=== PATIENT | male | born 1995 | race Two or more races ===

== ENCOUNTER 2022-08-11 10:34 | Emergency (ER) | payer OTHER ==
[~2022-08-11] VITALS: Ht 172.7 cm; Wt 99.8 kg
== END 2022-08-11 11:55 | disposition home or self-care (01) ==
LOC: ER 10:34
DX: S73.191A Other sprain of right hip, initial encounter (principal); S76.011A Strain of muscle, fascia and tendon of right hip, initial encounter; S76.311A Strain of muscle, fascia and tendon of the posterior muscle group at thigh level, right thigh, initial encounter; X58.XXXA Exposure to other specified factors, initial encounter; Y93.66 Activity, soccer; Y92.89 Other specified places as the place of occurrence of the external cause; Y99.8 Other external cause status; M79.651 Pain in right thigh; Z91.030 Bee allergy status

== ENCOUNTER → 2024-08-27 | Emergency (ER) | payer OTHER ==
[~2024-08-27] VITALS: Ht 172.7 cm; Wt 99.8 kg
[~2024-08-27] MED LIST: CLONIDINE HCL 0.1 MG TABLET PO ONE; cloNIDine HCL 0.2 MG TABLET PO STA
[2024-08-27 09:24] LABS: MEAN CORPUSCULAR HEMOGLOBIN 30.2 pg (27.00-32.0); MEAN CORPUSCULAR HGB CONC 34.7 g/dl (32.0-36.0); PLATELET COUNT 150 K/uL (150-450); RED BLOOD COUNT 5.29 M/uL (4.00-6.00); RED CELL DISTRIBUTION WIDTH 13.8 % (11.5-14.5)
[2024-08-27 09:37] LABS: PH,URINE 5.5 (5.0-8.0); URINE APPEARANCE Clear; URINE BILIRRUBIN Negative (NEGATIVE); URINE BLOOD Trace; URINE COLOR Yellow; URINE GLUCOSE Negative (NEGATIVE); URINE KETONE Negative (NEGATIVE); URINE LEUKOCYTE Negative; URINE NITRATE Negative; URINE PROTEIN Negative (NEGATIVE); URINE UROBILINOGEN 0.2 E.U./dl
[2024-08-27 09:41] LABS: URINE WBC 2.2 uL (0.0-23.2)
[2024-08-27 10:09] LABS: CALCIUM 9.6 mg/dL (8.5-10.1); CREATININE SERUM 1.17 mg/dL (0.70-1.30); GFR 74.23; POTASSIUM 4.62 mEq/L (3.5-5.1)
[2024-08-27 10:36] LABS: URINE EPITHELIAL CELLS 0.6 uL (0.0-38.8); URINE RBC 1.6 uL (0.0-20.8)
== END | disposition home or self-care (01) ==
LOC: ER 06:18
PROVIDERS: General Practice
DX: I10 Essential (primary) hypertension (principal); Z91.030 Bee allergy status